=== PATIENT | male | born 1975 | race Caucasian/White ===

== ENCOUNTER 2017-07-30 21:56 | Emergency (ER) | payer OTHER ==
[~2017-07-30] VITALS: Ht 167.6 cm; Wt 68.5 kg
[2017-07-30 22:01] VITALS: Ht 167.6 cm; Wt 68.5 kg
[2017-07-31] MEDS ORDERED: IBUPROFEN 200 MG TAB PO ONE
--- NOTE | 2017-07-31 00:55 | RADRPT ---
PROCEDURE: XR Ankle. CLINICAL INDICATION: Ankle pain. TECHNIQUE: AP, lateral and oblique views of the right ankle were performed. COMPARISON: There are no similar studies submitted for comparison. FINDINGS: There is normal bone mineralization.There is no acute fracture or dislocation.The ankle mortise is i ntact.No osseous lesion is identified.There is no soft tissue swelling. IMPRESSION: No acute fracture or dislocation. RPTAT: HIKT .Quintin Fisher MD, MD Date Time Electronically viewed and signed by .Quintin Fisher MD, on 07/31/2017 00:55 .T/
[2017-07-31] MEDS ORDERED: IBUP-1542 PO (01:12)
--- NOTE | 2017-07-31 01:12 | ERD ---
ER Documentation Chief Complaint Chief Complaint right foot pain while playing soccer today HPI This 42-year-old male patient presents to emergency department for right Achilles pain. Patient reports he was playing soccer today running heard a loud snap, fell to the ground and has not been able to weight-bear since. Patient reports pain with foot movement, edema, and bruising. Any other injury , hitting his head or loss of consciousness ROS All systems reviewed and are negative except as per history of present illness. Medications Home Meds Active Scripts Ibuprofen* (Motrin*) 600 Mg Tab, 600 MG PO Q6, #30 TAB Prov:LAKE JOHNSON 07/31/17 Allergies Allergies: Coded Allergies: Penicillins (Verified Allergy, Unknown, 07/30/17) PMhx/Soc Medical and Surgical Hx: pt denies Medical Hx History of Surgery: Yes (R inguinal hernia sx) Anesthesia Reaction: No Hx Alcohol Use: No Hx Substance Use: No Hx Tobacco Use: No Smoking Status: Never smoker Physical Exam Vitals Vital Signs Date Time Temp Pulse Resp B/P Pulse Ox O2 Delivery O2 Flow Rate FiO2 07/30/17 22:01 98.4 95 20 130/82 98 Title stable, triage notes reviewed Physical Exam Const: Well-hydrated well-appearing male patient obvious discomfort no acute distress Head: Atraumatic Eyes: Normal Conjunctiva PERRLA, EOMI ENT: Neck: Resp: Cardio: Abd: Skin: Back: Lower Extremity -ankle: Skin: No laceration tissue swelling and ecchymosis noted Achilles Compartments: Soft Motor: Decreased range of motion with flexion, extension, and rotation. Cyr test positive Sensation: Intact to light touch anterior, inferior, and lateral surfaces. Bones: Nontender pelvis/knee/proximal tibia/ malleoli/foot Joints: No effusion or laxity Pulses/Perfusion: [2+ DP, Capillary refill < 2 seconds] Neur: Awake and alert Psych: Normal Mood and Affect Results 24 hrs Current Medications Medications (Trade) Dose Ordered Sig/Ermias Route PRN Reason Start Time Stop Time Status Last Admin Dose Admin Ibuprofen (Motrin) 400 mg ONCE ONCE PO 07/31/17 00:00 07/31/17 00:01 DC 07/30/17 23:51 Procedures/MDM PROCEDURE: XR Ankle. CLINICAL INDICATION: Ankle pain. TECHNIQUE: AP, lateral and oblique views of the right ankle were performed. COMPARISON: There are no similar studies submitted for comparison. FINDINGS: There is normal bone mineralization.There is no acute fracture or dislocation.The ankle mortise is intact.No osseous lesion is identified.There is no soft tissue swelling. IMPRESSION: No acute fracture or dislocation. Electronically viewed and signed by .Quintin Fisher MD, on 07/31/2017 00:55 This 42-year-old male patient presents to emergency department for evaluation of Achilles injury, patient reports he has pain in his Achilles tendon, states he was running playing soccer heard a loud snap and fell has not been able to weight-bear since, pain is 3-4 out of 10, increased with movement. Two-room course includes history and physical exam, Cyr test positive Achilles rupture suspected, x-ray negative for fracture, see above. Plan to place patient in a posterior splint dorsal flexion, crutch training, instructed to go to primary care physician for referral to orthopedics. Patient will be discharged home with ibuprofen, to remain nonweightbearing until seen by specialist. Patient is stable with no new complaints during ER course, clinically there is no current evidence to suggest fracture, abscess, or any other emergent condition appearing to require further evaluation or hospitalization. I feel the patient is stable for discharge at this time. I have discussed results, examination findings, the treatment plan with the patient and family present prior to discharge. Indications for emergent reevaluation, side effects of medication were also discussed. All questions were answered. Patient verbalizes understanding and agrees with plan of care. Splint Assessment: Neurovascularly intact post splint placement with good fit. Departure Diagnosis: Primary Impression: Achilles tendon injury Encounter type: initial encounter Laterality: right Qualified Code: S86.001A - Injury of right Achilles tendon, initial encounter Condition: Good Patient Instructions: Achilles Tendon Rupture Referrals: [facility] Additional Instructions: Thank you for for coming to [facility] for your care today. Please ask your nurse or provider if you have questions about your care today and do not leave until all your questions have been answered. Please use any medications given as directed and follow-up with your doctor (or the doctor you were referred to) in the next 2-3 days. If you do not have a primary care doctor you may follow up at the [facility] [place] (listed below). You may also use motrin and tylenol as needed for fever and/or pain unless instructed otherwise by your provider or nurse. Indications for more urgent follow-up have been discussed, but you may return to the Emergency Department at ANY time for any worrisome or worsening symptoms. If you have abdominal pain, please know that no test or exam you received is perfect and you should follow up within 8 hours for continued pain. If you had any imaging studies today, such as an X-Ray or CT Scan, these studies will be reviewed later by a radiologist. You will be called if there are important findings that were not identified today, so make sure the contact information you provided at registration is correct. If you received any narcotic pain control medicine today, such as Vicodin, Morphine or Dilaudid, your coordination and judgment may be affected for a number of hours. Please do not drive or operate heavy machinery, and you may want someone to assist you at home. If you were given a prescription for narcotic medication, be aware that it is very addictive- use sparingly and only if necessary. LAKE JOHNSON Jul 31, 2017 01:12
== END 2017-07-31 02:00 | disposition home or self-care (01) ==
LOC: FTE 21:56
DX: S86.001A Unspecified injury of right Achilles tendon, initial encounter (principal); W18.39XA Other fall on same level, initial encounter; Y92.9 Unspecified place or not applicable